=== PATIENT | male | born 1985 | race Caucasian/White ===

== ENCOUNTER 2021-09-24 06:19 | Day surgery (SDC) | payer OTHER ==
[~2021-09-24] VITALS: Ht 188.1 cm; Wt 106.0 kg
[2021-09-24] VITALS (13 sets, daily range): BP systolic 110–131; BP diastolic 64–99; PULSE 61–73; TEMP 98.2
[2021-09-24 07:22] LABS: HEMATOCRIT 41.5 % (42.0-52.0); HEMOGLOBIN 15.1 g/dl (13.5-18.0); MEAN CELL VOLUME 89 fl (80.0-100.0); MEAN CORPUSCULAR HEMOGLOBIN 32 pg (27.0-31.0); MEAN CORPUSCULAR HGB CONC 36 g/dl (33.0-37.0); MEAN PLATELET VOLUME 10.1 fl (7.4-10.4); PLATELET COUNT 219 K/mm3 (130-400); RED BLOOD COUNT 4.67 M/mm3 (4.20-5.60); REDCELL DISTRIBUTION WIDTH-CV 11.9 % (11.5-14.5)
[2021-09-24] MEDS ORDERED: NITROSTAT0.4 MG/TAB SL (07:28)
[2021-09-24 07:30] LABS: PROTHROMBIN TIME 11.2 SECONDS (9.7-12.8)
[2021-09-24 07:33] LABS: PARTIAL THROMBOPLASTIN TIME 31.5 SECONDS (26.0-37.0)
[2021-09-24 07:40] LABS: CALCIUM 9.1 mg/dL (8.4-10.2); CREATININE, serum 1.06 mg/dL (0.72-1.25); POTASSIUM 4.2 mmol/L (3.5-4.5)
--- NOTE | 2021-09-24 08:00 | NUR ---
SEE MERGE FOR ALL MEDICATION ADMINISTRATION TIMES, INTRA AND POST SEDATION ASSESSMENTS
--- NOTE | 2021-09-24 14:15 | NUR ---
All air removed from right radial band in 2-3 ml incriments.no bleeding observed at site.Discharge instructions given to pt.pt verbalizes understanding.INT removed,catheter tip intact.dressing observed clean,dry, intact, and soft to touch at both radial and right neck site.Pt escorted out via wheelchair by this nurse.
== END 2021-09-24 16:41 ==
LOC: COL.CAR 06:19
PROVIDERS: Internal Medicine Cardiovascular Disease
DX: R07.9 Chest pain, unspecified (principal); R94.39 Abnormal result of other cardiovascular function study; Q24.2 Cor triatriatum; Z79.899 Other long term (current) drug therapy
CPT/HCPCS: C1894; J1644; J2250; J3010; J7030